=== PATIENT | female | born 1995 ===

== ENCOUNTER 2018-11-11 18:56 | Emergency (ER) | payer SELFPAY ==
--- NOTE | 2018-11-11 20:23 | C.PDOC ---
History Of Present Illness The patient presents to the ED for evaluation of mid-epigastric abdominal pain which began earlier today. She denies dysuria, nausea, vomiting, diarrhea. Time Seen by Provider: 11/11/18 20:22 Chief Complaint (Nursing): Abdominal Pain History Per: Patient History/Exam Limitations: no limitations Onset/Duration Of Symptoms: Hrs Current Symptoms Are (Timing): Still Present Severity: Mild Pain Scale Rating Of: 4 Location Of Pain/Discomfort: Epigastric (mid) Radiation Of Pain To:: None Quality Of Discomfort: Dull, Aching, Cramping, "Pain" Associated Symptoms: denies: Nausea, Vomiting, Diarrhea, Urinary Symptoms (dysuria ) Exacerbating Factors: None Alleviating Factors: None Last Bowel Movement: Today Recent travel outside of the [place]: No Additional History Per: Patient Abnormal Vaginal Bleeding: No Past Medical History Reviewed: Historical Data, Nursing Documentation, Vital Signs Vital Signs: Last Vital Signs Temp 97.6 F 11/11/18 19:02 Pulse 69 11/11/18 19:02 Resp 18 11/11/18 19:02 BP 103/70 11/11/18 19:02 Pulse Ox 99 11/11/18 19:02 - Medical History PMH: No Chronic Diseases Surgical History: No Surg Hx Family History: States: Unknown Family Hx - Social History Hx Alcohol Use: No Hx Substance Use: No - Immunization History Hx Tetanus Toxoid Vaccination: No Hx Influenza Vaccination: No Hx Pneumococcal Vaccination: No Review Of Systems Cardiovascular: Negative for: Chest Pain, Palpitations Respiratory: Negative for: Cough, Shortness of Breath Gastrointestinal: Positive for: Abdominal Pain (mid-epigastric ). Negative for: Nausea, Vomiting Genitourinary: Negative for: Dysuria, Frequency, Hematuria Musculoskeletal: Negative for: Back Pain Skin: Negative for: Rash, Lesions, Jaundice, Bruising Neurological: Negative for: Weakness, Numbness Physical Exam - Physical Exam Appears: Non-toxic, No Acute Distress Skin: Warm, Dry Head: Normacephalic Eye(s): bilateral: Normal Inspection Oral Mucosa: Moist Neck: Supple Chest: Symmetrical, No Deformity Cardiovascular: Rhythm Regular Respiratory: No Rales, No Rhonchi, No Wheezing Gastrointestinal/Abdominal: Soft, Tenderness (mid-epigastric ), No Guarding, No Rebound Extremity: Normal ROM, Capillary Refill (less than 2 seconds ) Neurological/Psych: Oriented x3 ED Course And Treatment - Laboratory Results Result Diagrams: 11/11/18 20:58 11/11/18 20:58 O2 Sat by Pulse Oximetry: 99 (on RA) Pulse Ox Interpretation: Normal Progress Note: Bloodwork and urinalysis ordered and reviewed. Reevaluation Time: 23:53 Reassessment Condition: Improved Disposition Counseled Patient/Family Regarding: Studies Performed, Diagnosis, Need For Followup, Rx Given - Disposition Referrals: [facility] [Outside] [facility] [Outside] Disposition: HOME/ ROUTINE Disposition Time: 20:23 Condition: FAIR Additional Instructions: Please return if symptoms recur Prescriptions: Metronidazole [Flagyl] 500 mg PO TID #21 tablet Instructions: Acute Abdomen (Belly Pain), Adult (DC), Ovarian Cyst (DC) Forms: [employer] (Cameroonian) - Clinical Impression Clinical Impression: Enterocolitis, Ovarian cyst - Scribe Statement The provider has reviewed the documentation as recorded by the Scribe (Ruth Ann Bravo) Provider Attestation: All medical record entries made by the Scribe were at my direction and personally dictated by me. I have reviewed the chart and agree that the record accurately reflects my personal performance of the history, physical exam, medical decision making, and the department course for this patient. I have also personally directed, reviewed, and agree with the discharge instructions and disposition.
[2018-11-11 21:01] LABS: BASO % 0.4 % (0.0-2.0); EOS # 0.1 K/uL (0.0-0.7); EOS % 0.7 % (0.0-4.0); HEMOGLOBIN 13.7 g/dL (11.0-16.0); LYMPH # 2.8 K/uL (1.0-4.3); LYMPH % 29.9 % (20.0-40.0); MEAN CELL VOLUME 91.7 fL (81.0-99.0); MEAN CORPUSCULAR HGB CONC 33.8 g/dL (33.0-37.0); MEAN PLATELET VOLUME 6.8 fL (7.2-11.7); MONO # 0.8 K/uL (0.0-0.8); MONO % 8.1 % (0.0-10.0); NEUT # 5.7 K/uL (1.8-7.0); NEUT % 60.9 % (50.0-75.0); NRBC % 0.1 % (0.0-2.0); RBC 4.42 Mil/uL (3.80-5.20); RED CELL DISTRIBUTION WIDTH 13.2 % (11.5-14.5); WHITE BLOOD COUNT 9.3 K/uL (4.8-10.8)
[2018-11-11 21:10] LABS: SQUAMOUS EPITHIAL 1 /hpf (0-5); URINE BILIRUBIN NEGATIVE (NEGATIVE); URINE BLOOD NEGATIVE (NEGATIVE); URINE CLARITY Hazy (Clear); URINE COLOR Yellow (YELLOW); URINE GLUCOSE (UA) NORMAL (Normal); URINE LEUKOCYTE ESTERASE NEG Leu/uL (Negative); URINE PROTEIN NEGATIVE (NEGATIVE); URINE UROBILINOGEN NORMAL mg/dL (0.2-1.0)
[2018-11-11 21:12] LABS: ALB/GLOB RATIO 1.5 (1.0-2.1); ALBUMIN 4.5 g/dL (3.5-5.0); ALT/SGPT 27 U/L (9-52); AST/SGOT 29 U/L (14-36); BLOOD UREA NITROGEN 10 mg/dL (7-17); CALCIUM 8.7 mg/dl (8.6-10.4); GFR NON-AFRICAN AMERICAN > 60; LIPASE 62 U/L (23-300)
[2018-11-11 21:19] LABS: HCG,QUALITATIVE URINE NEGATIVE (NEGATIVE)
[2018-11-11] MEDS ORDERED: Iodixanol 320 MG/ML 100 ML BOTTLE IV ONE (22:00)
[2018-11-12 00:09] VITALS: BP 118/68; PULSE 78; RESP 20; TEMP 98; O2SAT 98
--- NOTE | 2018-11-12 07:47 | CT ---
CT abdomen and pelvis HISTORY: Mid epigastric abdominal pain. COMPARISON: None available. TECHNIQUE: Multiple contiguous axial images were performed through the abdomen and pelvis with the use of intravenous contrast. Subsequently, sagittal and coronal reformatted images were obtained. This CT exam was performed using one or more of the following dose reduction techniques: Automated exposure control, adjustment of the mA and/or kV according to patient size, and/or use of iterative reconstruction technique. Findings: Linear atelectasis at the left lung base. No pleural or pericardial effusion. Liver and gallbladder are preserved. Spleen is preserved. Splenule. Adrenal glands are preserved. Pancreas is preserved. Upper abdominal bowel demonstrates a few mildly distended and fluid-filled loops of small bowel in the upper and mid abdomen. Right kidney: No calculi or hydronephrosis. Left Kidney: No calculi or hydronephrosis. Urinary bladder is preserved. Heterogeneous uterus and bilateral adnexa. 4.7 centimeter right ovarian cyst. Small amount of free fluid within the posterior pelvic cul-de-sac. Under distended and or mildly thickened left hemicolon. Fecal retention in the right hemicolon. Appendix is within normal limits. Few shotty para-aortic and inguinal lymph nodes. Few shotty mesenteric lymph nodes. Osseous structures are preserved. Mild sclerosis at the posterior superior endplate of the L5 vertebral body. Impression: 1. 4.7 centimeter right ovarian cyst. Further evaluation with pelvic ultrasound may be helpful if clinically indicated. 2. Small amount of free fluid within the posterior pelvic cul-de-sac. 3. Few mildly distended and fluid-filled loops of small bowel in the upper and mid abdomen. This may represent an underlying enteritis. Clinical correlation. 4. Under distended and or mildly thickened left hemicolon. Clinical correlation. A preliminary report was generated at 11:03 p.m. on 11/11/[address] Ishaan Sesay from [facility].
== END 2018-11-12 00:08 | disposition home or self-care (01) ==
LOC: C.ER 18:56
DX: K52.9 Noninfective gastroenteritis and colitis, unspecified (principal); N83.209 Unspecified ovarian cyst, unspecified side
CPT/HCPCS: 74177; 80053; 81001; 83690; 84703; 85025; 99284; Q9967